=== PATIENT | female | born 1965 | race Caucasian/White ===

== ENCOUNTER 2016-05-26 08:17 | Outpatient (CLI) | payer BC ==
[~2016-05-26 08:17] MED LIST: Sodium Chloride 0.9% 10 ML Syringe IV PRN; Sodium Chloride 0.9% 50 ML IV ONE; methylPREDNISolone Sodium Succinate 125 MG/2 ML SDV IVPUSH PRN
[2016-05-26 08:42] VITALS: BP 139/88
[2016-05-26] MEDS ORDERED: SODIUM CHLORIDE 0.9% IV ONE (08:45)
[2016-05-26] MEDS ORDERED: INFLIXIMAB IV ONE (08:45)
== END 2016-05-26 11:08 | disposition home or self-care (01) ==
LOC: VM.ACU 08:17
PROVIDERS: ATTEND Internal Medicine Rheumatology
DX: M05.9 Rheumatoid arthritis with rheumatoid factor, unspecified (principal)
CPT/HCPCS: 96413; 96415; J1745; J7050

== ENCOUNTER 2017-08-05 16:11 | Emergency (ER) | payer BC ==
--- NOTE | 2017-08-05 16:48 | EDM.PDOC ---
ED HPI GENERAL MEDICAL PROBLEM - General Chief Complaint: Upper Extremity Injury/Pain Stated Complaint: broken clavicle Time Seen by Provider: 08/05/17 16:13 Source of Information: Reports: Patient History Limitations: Reports: No Limitations - History of Present Illness INITIAL COMMENTS - FREE TEXT/NARRATIVE: Patient was out sledding with her family when she fell while sledding. She has a visibly deformed left mid clavicle. Fracture is closed. She does state she hit her head, but has no complaints of headache and denies any LOC. She rates pain a 7/10 but currently does refuse pain medications. No numbness or tingling to her left hand. 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 Left Clavicle Pain Score (Numeric/FACES): 8 - Related Data Allergies Allergy/AdvReac Type Severity Reaction Status Date / Time No Known Allergies Allergy Verified 08/05/17 16:19 Home Meds: Home Meds Aspirin [Ecotrin] 3 tab PO BID 08/27/14 [History] Beclomethasone Dipropionate [Beconase AQ] 1 spray DAILY 08/27/14 [History] Calcium Carbonate/Vitamin D3 [Calcium 600 + Vit D 400] 1 tab DAILY 08/27/14 [ History] Ferrous Sulfate [Iron] 325 mg PO DAILY 08/27/14 [History] Folic Acid 1 tab DAILY 08/27/14 [History] InFLIXimab [Remicade] 800 mg IV ASDIRECTED 08/27/14 [History] Levonorgestrel-Ethin Estradiol [Trivora-28] 1 each PO DAILY 08/27/14 [History] Levothyroxine [Sythroid] 100 mcg PO DAILY 08/27/14 [History] Methotrexate 8 tab PO WEEKLY 08/27/14 [History] Multivitamin [Multivitamins] 1 tab DAILY 08/27/14 [History] SUMAtriptan [Imitrex] 25 mg PO ASDIRECTED PRN 08/27/14 [History] cycloSPORINE [Restasis] 1 each OP DAILY 08/27/14 [History] Past Medical History Musculoskeletal History: Reports: RA Social & Family History - Tobacco Use Smoking Status *Q: Never Smoker - Alcohol Use Days Per Week of Alcohol Use: 0 - Recreational Drug Use Recreational Drug Use: No Review of Systems - Review of Systems Review Of Systems: See Below Constitutional: Reports: No Symptoms Eyes: Reports: No Symptoms Ears: Reports: No Symptoms Nose: Reports: No Symptoms Mouth/Throat: Reports: No Symptoms Respiratory: Reports: No Symptoms Cardiovascular: Reports: No Symptoms GI/Abdominal: Reports: No Symptoms Genitourinary: Reports: No Symptoms Musculoskeletal: Reports: Shoulder Pain Skin: Reports: No Symptoms Neurological: Reports: No Symptoms Psychiatric: Reports: No Symptoms ED EXAM, GENERAL - Physical Exam Exam: See Below Exam Limited By: No Limitations General Appearance: Alert, WD/WN, No Apparent Distress Eye Exam: Bilateral Eye: EOMI, Normal Inspection, PERRL Head: Atraumatic, Normocephalic Neck: Normal Inspection, Supple, Non-Tender, Full Range of Motion Respiratory/Chest: No Respiratory Distress, Lungs Clear, Normal Breath Sounds, No Accessory Muscle Use, Chest Non-Tender Cardiovascular: Normal Peripheral Pulses, Regular Rate, Rhythm, No Edema, No Gallop, No JVD, No Murmur, No Rub Peripheral Pulses: 2+: Radial (L), Radial (R) GI/Abdominal: Normal Bowel Sounds, Soft, Non-Tender, No Organomegaly, No Distention, No Abnormal Bruit, No Mass Back Exam: Normal Inspection, Full Range of Motion, NT Extremities: Non-Tender, No Pedal Edema, Normal Capillary Refill, Limited Range of Motion, Other (visible deformity to mid clavicle, closed skin). No: Normal Inspection Neurological: Alert, Oriented, CN II-XII Intact, Normal Cognition, Normal Gait, Normal Reflexes, No Motor/Sensory Deficits Psychiatric: Normal Affect, Normal Mood Skin Exam: Warm, Dry, Intact, Normal Color, No Rash Lymphatic: No Adenopathy Course - Vital Signs Last Recorded V/S: Last Vital Signs Temp 36.6 C 08/05/17 16:11 Pulse 98 08/05/17 16:11 Resp 18 08/05/17 16:11 BP 177/99 H 08/05/17 17:17 Pulse Ox 98 08/05/17 16:11 - Orders/Labs/Meds Orders: Active Orders 24 hr Category Date Time Status Shoulder Comp Lt [CR] Stat Exams 08/05/17 16:14 Taken Meds: Medications Discontinued Medications Generic Name Dose Route Start Last Admin Trade Name Freq PRN Reason Stop Dose Admin Ketorolac Tromethamine 30 mg 08/05/17 17:17 08/05/17 17:25 Toradol IM 08/05/17 17:18 30 mg ONETIME ONE Administration Tramadol HCl 1 packet 08/05/17 17:40 08/05/17 18:07 Take Home: Tramadol 50 Mg, 4 Tab Pack PO 08/05/17 17:41 Not Given ONETIME ONE - Radiology Interpretation Free Text/Narrative:: shoulder x-ray shows a displaced comminuted fracture of the mid clavicular shaft. Await radiologic confirmation, images sent to [facility] call to consult with ortho yellow pages space salesperson Dr. Germain. Departure - Departure Time of Disposition: 17:37 Disposition: Home, Self-Care 01 Condition: Good Clinical Impression: Fracture of clavicle Qualifiers: Encounter type: initial encounter Clavicle location: shaft Fracture type: closed Fracture alignment: displaced Laterality: left Qualified Code(s): S42.022A - Displaced fracture of shaft of left clavicle, initial encounter for closed fracture - Discharge Information Instructions: Clavicle Fracture, [id number], How to Use a Sling, [id number] Referrals: Ngoc Barajas MD [Primary Care Provider] - Forms: ED Department Discharge Additional Instructions: I did discuss your case with DR. GERMAIN. fisher scallop orthopedic surgeon from [facility] in [place]. He is requesting that your arm be put into a sling to immobilize it, give you pain medications and schedule a follow up appointment in [place] at the orthopedic clinic. One of the surgeons with discuss options with you at that time. The orthopedic clinic number is [phone] Use ice to keep the swelling down in the area. Alternate ibuprofen with your pain medication. I am going to prescribe you tramadol. You can also use tylenol with this. Please call us with any questions or concerns in between now and your orthopedic follow up appointment. - Problem List & Annotations (1) Fracture of clavicle SNOMED Code(s): 09780099 Code(s): S42.009A - FRACTURE OF UNSP PART OF UNSP CLAVICLE, INIT FOR CLOS FX Status: Acute Priority: Low Qualifiers: Encounter type: initial encounter Clavicle location: shaft Fracture type : closed Fracture alignment: displaced Laterality: left Qualified Code(s) : S42.022A - Displaced fracture of shaft of left clavicle, initial encounter for closed fracture - Problem List Review Problem List Initiated/Reviewed/Updated: Yes - My Orders Last 24 Hours: My Active Orders 08/05/17 16:14 Shoulder Comp Lt [CR] Stat - Assessment/Plan Last 24 Hours: My Active Orders 08/05/17 16:14 Shoulder Comp Lt [CR] Stat Assessment:: displaced, comminuted, left clavicular fracture of the mid shaft Plan: I did discuss your case with DR. GERMAIN. fisher scallop orthopedic surgeon from [facility] in [place]. He is requesting that your arm be put into a sling to immobilize it, give you pain medications and schedule a follow up appointment in [place] at the orthopedic clinic. One of the surgeons with discuss options with you at that time. The orthopedic clinic number is [phone] Use ice to keep the swelling down in the area. Alternate ibuprofen with your pain medication. I am going to prescribe you tramadol. You can also use tylenol with this. Please call us with any questions or concerns in between now and your orthopedic follow up appointment.
[2017-08-05 17:17] VITALS: BP 177/99
[2017-08-05] MEDS: Ketorolac 30 MG/ML SDV IM ONE (17:25)
[2017-08-05] MEDS: Take Home: traMADol 50 MG, 4 Tab Pack PO ONE (18:07)
== END 2017-08-05 18:02 | disposition home or self-care (01) ==
LOC: VM.ED 16:11
DX: S42.022A Displaced fracture of shaft of left clavicle, initial encounter for closed fracture (principal); Z79.899 Other long term (current) drug therapy; W19.XXXA Unspecified fall, initial encounter
CPT/HCPCS: 73030-LT; 96372; 99283; J1885

== ENCOUNTER 2018-06-01 07:07 | Day surgery (SDC) | payer BC ==
[~2018-06-01 07:07] MED LIST changes: +Lactated Ringers 1,000 ML IV SCH; -Sodium Chloride 0.9% 10 ML Syringe IV PRN; -Sodium Chloride 0.9% 50 ML IV ONE; -methylPREDNISolone Sodium Succinate 125 MG/2 ML SDV IVPUSH PRN
[2018-06-01] MEDS ORDERED: Propofol 200 MG/20 ML SDV ONE ×2 (07:54→09:19)
[2018-06-01] MEDS ORDERED: fentaNYL 100 MCG/2 ML SDV ONE (07:54)
[2018-06-01 10:08] VITALS: BP 143/83
--- NOTE | 2018-06-01 10:21 | OR ---
PRE-OPERATIVE DIAGNOSIS: Positive FIT stool card. This is the patient's first colonoscopy. She denies any bloody or dark black-colored stools nor any chronic constipation or chronic diarrhea. There is no known family history of colon cancer or colon polyps. POST-OPERATIVE DIAGNOSES: 1. Minimal sigmoid diverticulosis. 2. Mild internal hemorrhoids, not acutely inflamed. 3. Somewhat tortuous right colon and proximal transverse colon. PROCEDURE: Colonoscopy. ANESTHESIA: Monitored anesthesia care. BOWEL PREP: Good. Sendy is a 53-year-old female, who was brought to the endoscopy suite after discussing risks and benefits of the procedure. Informed consent was obtained for conscious sedation and colonoscopy with or without biopsy and/or polypectomy. We also discussed possibility of missed lesions. Pre-procedure exam was unremarkable. IV, oxygen, and monitors were placed. The patient was placed in the left lateral decubitus position. Sedation was administered and a digital rectal exam was performed and unremarkable. Colonoscope was passed into the rectum and slowly advanced all the way to the cecum. The right colon and proximal transverse colon were somewhat tortuous, most in corkscrew-type orientation. I was able to get by this with some scope maneuvering. Cecum was viewed and photographed. The colonoscope was slowly withdrawn and the mucosa was closed observed in a direct circumferential manner. The ascending colon was unremarkable. The transverse colon was unremarkable. The descending colon was unremarkable. The sigmoid colon did reveal some minimal diverticulosis. There was no acute inflammation or evidence of bleeding. Retroflexion was performed. Rectal mucosa revealed some evidence of mild internal hemorrhoids, not acutely inflamed. Scope was removed. The patient tolerated the procedure well. The patient was monitored until that baseline status. Discharge instructions were reviewed and the patient was discharged in good condition. COMPLICATIONS: None. TOTAL TIME: 19 minutes. ESTIMATED BLOOD LOSS: None. RECOMMENDATIONS/FOLLOW-UP: I recommend repeat colonoscopy in 10 years barring any interval change and personal symptoms or family history. I would like to kindly thank, Dr. Barajas, for this referral. DMB: 06/01/2018 09:40:10 MODL: 06/01/2018 10:13:18 /[id number]
== END 2018-06-01 10:50 | disposition home or self-care (01) ==
LOC: VM.SDS 07:07
PROVIDERS: ATTEND Family Medicine
DX: R19.5 Other fecal abnormalities (principal); K64.8 Other hemorrhoids; K57.30 Diverticulosis of large intestine without perforation or abscess without bleeding; K63.89 Other specified diseases of intestine; E66.9 Obesity, unspecified; Z68.31 Body mass index [BMI] 31.0-31.9, adult; E78.00 Pure hypercholesterolemia, unspecified; M06.89 Other specified rheumatoid arthritis, multiple sites; K21.9 Gastro-esophageal reflux disease without esophagitis; E03.9 Hypothyroidism, unspecified; G43.109 Migraine with aura, not intractable, without status migrainosus; Z79.890 Hormone replacement therapy; Z79.899 Other long term (current) drug therapy; Z88.5 Allergy status to narcotic agent; Z91.018 Allergy to other foods
CPT/HCPCS: J2704; J3010; J7120